=== PATIENT | male | born 1995 | race Caucasian/White ===

== ENCOUNTER 2020-07-18 12:24 | Emergency (ER) | payer SELFPAY ==
[~2020-07-18] VITALS: Ht 208.3 cm; Wt 102.1 kg
[2020-07-18 12:35] VITALS: BP 161/82
[2020-07-18] MEDS ORDERED: IBUP-1955 PO (14:24)
--- NOTE | 2020-07-18 14:28 | NUR ---
Patient discharged to home in stable condition. Written and verbal after care instructions given. Patient verbalizes understanding of instruction.
== END 2020-07-18 14:28 | disposition home or self-care (01) ==
LOC: EDBD 12:27 → ER 12:27
DX: S63.592A Other specified sprain of left wrist, initial encounter (principal); S60.222A Contusion of left hand, initial encounter; F10.10 Alcohol abuse, uncomplicated; Y90.9 Presence of alcohol in blood, level not specified; Z79.899 Other long term (current) drug therapy; X58.XXXA Exposure to other specified factors, initial encounter; Y93.71 Activity, boxing; Y92.89 Other specified places as the place of occurrence of the external cause; Y99.8 Other external cause status
CPT/HCPCS: 73110; 73130-TC